=== PATIENT | female | born 1955 | race Caucasian/White ===

== ENCOUNTER 2017-10-25 12:38 | Inpatient (IN) | payer OTHER ==
[2017-10-25] MEDS ORDERED: NACL 0.9% 3 ML SYG IV (15:30)
[2017-10-25] MEDS ORDERED: ACETAMINOPHEN 325 MG TAB PO (16:00)
[2017-10-25] MEDS ORDERED: VANCOMYCIN IV PER PHARMACY XX (16:00)
[2017-10-25 16:30] LABS: ADD MAN DIFF? NO
[2017-10-25 16:34] LABS: BASOPHILS % 0.4 % (0.0-2.0); EOSINOPHILS # 0.1 10^3/ul (0.0-0.5); EOSINOPHILS % 0.4 % (0.0-7.0); HEMATOCRIT 34.2 % (37.0-47.0); HEMOGLOBIN 11.4 g/dl (12.0-16.0); LYMPHOCYTES # 2.5 10^3/ul (0.8-2.9); LYMPHOCYTES % 22.1 % (15.0-51.0); MEAN CORPUSCULAR HEMOGLOBIN 29.7 pg (29.0-33.0); MEAN CORPUSCULAR HGB CONC 33.3 g/dl (32.0-37.0); MEAN CORPUSCULAR VOLUME 89.1 fl (82.0-101.0); MEAN PLATELET VOLUME 10.4 fl (7.4-10.4); MONOCYTE # 1.1 10^3/ul (0.3-0.9); MONOCYTES % 9.4 % (0.0-11.0); NEUTROPHIL # 7.6 10^3/ul (1.6-7.5); NEUTROPHILS % 67.2 % (39.0-77.0); PLATELET COUNT 283 10^3/UL (140-415); RED BLOOD COUNT 3.84 10^6/ul (4.20-5.40); RED CELL DISTRIBUTION WIDTH 13.6 % (11.5-14.5)
[2017-10-25 16:34] LABS: WHITE BLOOD COUNT 11.3 10^3/ul (4.8-10.8)
[2017-10-25] MEDS: SOD CHLORIDE 0.9% 1,000 ML IV (16:34)
[2017-10-25] MEDS: HYDROCODONE/APAP (5/325) TAB PO (16:34)
[2017-10-25] MEDS: LEVOFLOXACIN 500MG/D5W (PMX) 100 ML IVPB (16:50)
[2017-10-25 16:54] LABS: ANION GAP 13 (8-16); BLOOD UREA NITROGEN 11 mg/dl (7-20); CALCIUM 8.9 mg/dl (8.4-10.2); CARBON DIOXIDE 23 mmol/L (21-31); CHLORIDE 106 mmol/L (97-110); CREATINE KINASE 24 IU/L (23-200); CREATININE 0.61 mg/dl (0.44-1.00); GLUCOSE 113 mg/dl (70-220); POTASSIUM 4.1 mmol/L (3.5-5.1); SODIUM 138 mmol/L (135-144)
[2017-10-25 17:09] LABS: C-REACTIVE PROTEIN 14.8 mg/dl (0.0-0.9)
[2017-10-25 17:38] LABS: ERYTHROCYTE SEDIMENTATION RATE 50 mm/Hr (0-30)
[2017-10-25] MEDS: IBUPROFEN 400 MG TAB PO (18:16)
[2017-10-25] MEDS: VANCOMYCIN 1.5 GM in SOD CHLORIDE 0.9% 250 ML IVPB (18:18)
[2017-10-25] MEDS: FAMOTIDINE 20 MG TAB PO (21:46)
[2017-10-26] MEDS: IBUPROFEN 400 MG TAB PO ×2 (00:26→05:30)
[2017-10-26] MEDS: SOD CHLORIDE 0.9% 1,000 ML IV ×3 (01:17→21:23)
[2017-10-26 04:49] LABS: ADD UMIC NO; UR ASCORBIC ACID NEGATIVE (NEGATIVE); UR BILIRUBIN (Dip) NEGATIVE (NEGATIVE); UR BLOOD (Dip) NEGATIVE (NEGATIVE); UR CLARITY CLEAR (CLEAR); UR COLOR STRAW (YELLOW); UR GLUCOSE (Dip) NEGATIVE (NEGATIVE); UR KETONES (Dip) NEGATIVE (NEGATIVE); UR LEUKOCYTE ESTERASE (Dip) NEGATIVE Leu/ul (NEGATIVE); UR NITRITE (Dip) NEGATIVE (NEGATIVE); UR SPECIFIC GRAVITY (Dip) 1.006 (1.003-1.030); UR TOTAL PROTEIN (Dip) NEGATIVE (NEGATIVE); UR UROBILINOGEN (Dip) NEGATIVE (NEGATIVE)
[2017-10-26] MEDS: VANCOMYCIN 1 GM 250 ML IVPB ×2 (05:30→17:47)
[2017-10-26] MEDS: SOD CHLORIDE 0.9% 500 ML IV (06:03)
[2017-10-26 06:44] LABS: ADD MAN DIFF? NO
[2017-10-26 06:45] LABS: BASOPHIL # 0.1 10^3/ul (0.0-0.1); BASOPHILS % 0.7 % (0.0-2.0); EOSINOPHILS # 0.2 10^3/ul (0.0-0.5); EOSINOPHILS % 2.1 % (0.0-7.0); HEMATOCRIT 33.6 % (37.0-47.0); HEMOGLOBIN 10.8 g/dl (12.0-16.0); LYMPHOCYTES # 2.9 10^3/ul (0.8-2.9); LYMPHOCYTES % 34.5 % (15.0-51.0); MEAN CORPUSCULAR HGB CONC 32.1 g/dl (32.0-37.0); MEAN CORPUSCULAR VOLUME 90.3 fl (82.0-101.0); MEAN PLATELET VOLUME 10.7 fl (7.4-10.4); MONOCYTE # 0.8 10^3/ul (0.3-0.9); MONOCYTES % 9.7 % (0.0-11.0); NEUTROPHIL # 4.3 10^3/ul (1.6-7.5); NEUTROPHILS % 52.5 % (39.0-77.0); PLATELET COUNT 283 10^3/UL (140-415); RED BLOOD COUNT 3.72 10^6/ul (4.20-5.40); RED CELL DISTRIBUTION WIDTH 13.7 % (11.5-14.5)
[2017-10-26 06:45] LABS: WHITE BLOOD COUNT 8.3 10^3/ul (4.8-10.8)
[2017-10-26 07:07] LABS: HEMOGLOBIN A1C 6.2 % (0-5.9)
[2017-10-26 07:13] LABS: ALANINE AMINOTRANSFERASE 41 IU/L (13-69); ALBUMIN 3.1 g/dl (3.3-4.9); ALBUMIN/GLOBULIN RATIO 0.96; ALKALINE PHOSPHATASE 72 IU/L (42-121); ANION GAP 9 (8-16); ASPARTATE AMINO TRANSFERASE 22 IU/L (15-46); BILIRUBIN,INDIRECT 0.5 mg/dl (0-1.1); BILIRUBIN,TOTAL 0.5 mg/dl (0.2-1.3); BLOOD UREA NITROGEN 12 mg/dl (7-20); CALCIUM 8.6 mg/dl (8.4-10.2); CARBON DIOXIDE 26 mmol/L (21-31); CHLORIDE 110 mmol/L (97-110); CHOL/HDL RATIO 4.2 RATIO; CHOLESTEROL 118 mg/dl (100-200); CREATININE 0.69 mg/dl (0.44-1.00); GLUCOSE 89 mg/dl (70-220); HDL CHOLESTEROL 28 mg/dl (35-98); LDL CHOLESTEROL,CALCULATED 77 mg/dl; MAGNESIUM 2.2 mg/dl (1.7-2.5); PHOSPHORUS 3.7 mg/dl (2.5-4.9); POTASSIUM 4.4 mmol/L (3.5-5.1); SODIUM 141 mmol/L (135-144); TOTAL PROTEIN 6.3 g/dl (6.1-8.1); TRIGLYCERIDES 65 mg/dl (0-149)
[2017-10-26] MEDS: ONDANSETRON 4 MG INJ IV ×3 (08:49→21:23)
[2017-10-26] MEDS: FAMOTIDINE 20 MG TAB PO ×2 (08:49→21:23)
[2017-10-26] MEDS: HYDROCODONE/APAP (5/325) TAB PO (09:07)
[2017-10-26] MEDS: predniSONE 20 MG TAB PO (11:43)
[2017-10-26] MEDS: IBUPROFEN 600 MG TAB PO ×2 (12:56→17:47)
[2017-10-26] MEDS: LEVOFLOXACIN 500MG/D5W (PMX) 100 ML IVPB (15:11)
[2017-10-27] MEDS: IBUPROFEN 600 MG TAB PO ×5 (00:17→23:24)
[2017-10-27 05:39] LABS: ADD MAN DIFF? NO
[2017-10-27 05:49] LABS: BASOPHIL # 0.1 10^3/ul (0.0-0.1); BASOPHILS % 0.6 % (0.0-2.0); EOSINOPHILS # 0.1 10^3/ul (0.0-0.5); EOSINOPHILS % 1.2 % (0.0-7.0); HEMATOCRIT 33.2 % (37.0-47.0); HEMOGLOBIN 10.8 g/dl (12.0-16.0); LYMPHOCYTES # 2.7 10^3/ul (0.8-2.9); LYMPHOCYTES % 25.1 % (15.0-51.0); MEAN CORPUSCULAR HEMOGLOBIN 29.3 pg (29.0-33.0); MEAN CORPUSCULAR HGB CONC 32.5 g/dl (32.0-37.0); MEAN PLATELET VOLUME 10.2 fl (7.4-10.4); MONOCYTE # 0.7 10^3/ul (0.3-0.9); MONOCYTES % 6.5 % (0.0-11.0); NEUTROPHIL # 7.2 10^3/ul (1.6-7.5); PLATELET COUNT 316 10^3/UL (140-415); RED BLOOD COUNT 3.69 10^6/ul (4.20-5.40); RED CELL DISTRIBUTION WIDTH 13.1 % (11.5-14.5)
[2017-10-27 05:49] LABS: WHITE BLOOD COUNT 10.8 10^3/ul (4.8-10.8)
[2017-10-27 06:15] LABS: ANION GAP 8 (8-16); BLOOD UREA NITROGEN 13 mg/dl (7-20); CALCIUM 8.5 mg/dl (8.4-10.2); CARBON DIOXIDE 24 mmol/L (21-31); CHLORIDE 113 mmol/L (97-110); CREATININE 0.69 mg/dl (0.44-1.00); GLUCOSE 95 mg/dl (70-220); POTASSIUM 4.1 mmol/L (3.5-5.1); SODIUM 141 mmol/L (135-144)
[2017-10-27 06:30] LABS: VANCOMYCIN,TROUGH 7.5 ug/ml (10.0-20.0)
[2017-10-27] MEDS: VANCOMYCIN 1 GM 250 ML IVPB ×3 (06:38→23:12)
[2017-10-27] MEDS: SOD CHLORIDE 0.9% 1,000 ML IV ×3 (06:39→23:14)
[2017-10-27] MEDS: predniSONE 20 MG TAB PO (09:18)
[2017-10-27] MEDS: FAMOTIDINE 20 MG TAB PO ×2 (09:18→21:23)
[2017-10-27 16:47] LABS: ANA SCREEN POSITIVE (NEGATIVE)
[2017-10-27] MEDS: LEVOFLOXACIN 500MG/D5W (PMX) 100 ML IVPB (17:26)
[2017-10-27 19:02] LABS: ANA PATTERN CENTROMERE
[2017-10-27 21:14] LABS: LYME 18 KD (IGG) BAND NON-REACTIVE; LYME 23 KD (IGG) BAND REACTIVE; LYME 23 KD (IGM) BAND NON-REACTIVE; LYME 28 KD (IGG) BAND NON-REACTIVE; LYME 30 KD (IGG) BAND NON-REACTIVE; LYME 39 KD (IGG) BAND NON-REACTIVE; LYME 39 KD (IGM) BAND NON-REACTIVE; LYME 41 KD (IGG) BAND REACTIVE; LYME 41 KD (IGM) BAND NON-REACTIVE; LYME 45 KD (IGG) BAND NON-REACTIVE; LYME 58 KD (IGG) BAND NON-REACTIVE; LYME 66 KD (IGG) BAND NON-REACTIVE; LYME 93 KD (IGG) BAND NON-REACTIVE
[2017-10-28] MEDS: IBUPROFEN 600 MG TAB PO ×3 (05:47→18:54)
[2017-10-28 06:33] LABS: ADD MAN DIFF? NO
[2017-10-28 06:34] LABS: WHITE BLOOD COUNT 10.7 10^3/ul (4.8-10.8)
[2017-10-28 06:34] LABS: BASOPHIL # 0.1 10^3/ul (0.0-0.1); BASOPHILS % 0.9 % (0.0-2.0); EOSINOPHILS # 0.2 10^3/ul (0.0-0.5); EOSINOPHILS % 1.9 % (0.0-7.0); HEMATOCRIT 32.9 % (37.0-47.0); HEMOGLOBIN 10.7 g/dl (12.0-16.0); LYMPHOCYTES # 3.6 10^3/ul (0.8-2.9); LYMPHOCYTES % 33.5 % (15.0-51.0); MEAN CORPUSCULAR HEMOGLOBIN 29.1 pg (29.0-33.0); MEAN CORPUSCULAR HGB CONC 32.5 g/dl (32.0-37.0); MEAN CORPUSCULAR VOLUME 89.4 fl (82.0-101.0); MEAN PLATELET VOLUME 10.3 fl (7.4-10.4); MONOCYTE # 0.7 10^3/ul (0.3-0.9); MONOCYTES % 6.7 % (0.0-11.0); NEUTROPHILS % 56.3 % (39.0-77.0); PLATELET COUNT 342 10^3/UL (140-415); RED BLOOD COUNT 3.68 10^6/ul (4.20-5.40); RED CELL DISTRIBUTION WIDTH 13.1 % (11.5-14.5)
[2017-10-28 07:02] LABS: VANCOMYCIN,TROUGH 14.2 ug/ml (10.0-20.0)
[2017-10-28 07:04] LABS: ANION GAP 9 (8-16); BLOOD UREA NITROGEN 12 mg/dl (7-20); CALCIUM 8.6 mg/dl (8.4-10.2); CARBON DIOXIDE 24 mmol/L (21-31); CHLORIDE 114 mmol/L (97-110); CREATININE 0.65 mg/dl (0.44-1.00); GLUCOSE 91 mg/dl (70-220); SODIUM 143 mmol/L (135-144)
[2017-10-28] MEDS: VANCOMYCIN 1 GM 250 ML IVPB (08:57)
[2017-10-28] MEDS: predniSONE 10 MG TAB PO (09:32)
[2017-10-28] MEDS: FAMOTIDINE 20 MG TAB PO ×2 (09:32→21:56)
[2017-10-28 12:01] LABS: NIL 0.01 IU/mL; QUANTIFERON(R)-TB GOLD NEGATIVE (NEGATIVE); TB-NIL 0.05 IU/mL
[2017-10-28] MEDS: SOD CHLORIDE 0.9% 1,000 ML IV ×2 (13:17→19:25)
[2017-10-28 14:23] LABS: ASO TITER <50 IU/mL (<200)
[2017-10-28 19:36] LABS: CYCLIC CITRULLINATED PEP IGG <16 UNITS
[2017-10-29] MEDS: IBUPROFEN 400 MG TAB PO ×4 (02:24→21:12)
[2017-10-29] MEDS: SOD CHLORIDE 0.9% 1,000 ML IV ×3 (06:34→23:00)
[2017-10-29] MEDS: DOCUSATE SODIUM 100 MG CAP PO (08:38)
[2017-10-29] MEDS: FAMOTIDINE 20 MG TAB PO ×2 (08:38→21:12)
[2017-10-29] MEDS: predniSONE 10 MG TAB PO (08:38)
[2017-10-30] MEDS: IBUPROFEN 400 MG TAB PO (06:42)
[2017-10-30] MEDS: DOCUSATE SODIUM 100 MG CAP PO (08:27)
[2017-10-30] MEDS: predniSONE 10 MG TAB PO (08:27)
[2017-10-30] MEDS: FAMOTIDINE 20 MG TAB PO (08:28)
[2017-10-30] MEDS ORDERED: DOXYCYCLINE 100 MG TAB PO (12:30)
== END 2017-10-30 12:04 | disposition home or self-care (01) | DRG 554 ==
LOC: PP2 12:38
DX: M06.4 Inflammatory polyarthropathy (principal); M01.X Direct infection of joint in infectious and parasitic diseases classified elsewhere; B34.9 Viral infection, unspecified; E66.9 Obesity, unspecified; Z68.30 Body mass index [BMI] 30.0-30.9, adult; R73.03 Prediabetes; M79.1 Myalgia; M17.0 Bilateral primary osteoarthritis of knee; M19.042 Primary osteoarthritis, left hand; M19.041 Primary osteoarthritis, right hand; M19.032 Primary osteoarthritis, left wrist; M19.031 Primary osteoarthritis, right wrist
CPT/HCPCS: 71045; 80048; 80053; 80061; 80202; 81003; 82550; 83036; 83735; 84100; 84443; 85025; 85651; 86038; 86060; 86140; 86200; 86226; 86235; 86430; 86480; 86617; 86635; 87040; 87086; 87400; 93306; 97110; 97116; 97162; 97530